=== PATIENT | male | born 1955 | race Two or more races ===

== ENCOUNTER 2016-11-11 21:45 | Emergency (ER) | payer MEDICAID ==
[~2016-11-11] VITALS: Ht 185.4 cm; Wt 90.7 kg
[2016-11-11 21:50] VITALS: BP 180/76
[2016-11-11] MEDS ORDERED: HYDROmorphone HCL 2 MG/ML VL IV ONE (22:15)
[2016-11-11] MEDS ORDERED: ONDANSETRON HCL 4 MG/2 ML VIAL IV ONE (22:15)
[2016-11-12 00:24] LABS: Basophils # (auto) 0 uL; Basophils % (auto) 0.5 % (0.0-2.0); Eosinophils # (auto) 0.2 uL; Eosinophils % (auto) 2.7 % (0.0-7.0); Hematocrit 45.7 % (41.0-53.0); Hemoglobin 14.7 g/dL (13.5-17.5); Lymphocytes # (auto) 1.1 uL; Lymphocytes % (auto) 13.3 % (10.0-50.0); Mean Corpuscular Hemoglobin 28.6 pg (28.0-32.0); Mean Corpuscular Hgb Conc. 32.3 g/dL (32.0-36.0); Mean Corpuscular Volume 88.6 fL (80.0-100.0); Mean Platelet Volume 7.9 fL (7.4-10.4); Monocytes # (auto) 0.7 uL; Monocytes % (auto) 8.4 % (0.0-12.0); Neutrophils # (auto) 5.9 uL; Neutrophils % (auto) 75.1 % (37.0-80.0); Platelet Count (auto) 355 10^3/uL (140-450); Red Cell Distribution Width 14.4 % (11.6-16.0); SUSPECT VIEW TRANSMISSION; White Blood Cell 7.9 10^3/uL (4.4-10.8)
[2016-11-12 00:31] LABS: Albumin 3.6 g/dL (3.4-5.0); BUN/Creatinine Ratio 12.4; Calcium 8.6 mg/dL (8.5-10.1); Potassium 3.9 mmol/L (3.5-5.1)
[2016-11-12 00:34] LABS: Bilirubin, Total 0.2 mg/dL (0.2-1.0); Total Protein 8.4 g/dL (6.4-8.2)
[2016-11-12 00:42] LABS: INR 0.93 (0.9-1.15); Partial Thromboplastin Time 27.2 sec (22.64-33.71)
== END 2016-11-12 01:21 | disposition left against medical advice (07) ==
LOC: ER 21:56
DX: S02.32XA Fracture of orbital floor, left side, initial encounter for closed fracture (principal); H46.12 Retrobulbar neuritis, left eye; Y08.89XA Assault by other specified means, initial encounter; Y93.89 Activity, other specified; Y92.89 Other specified places as the place of occurrence of the external cause; Y99.8 Other external cause status
CPT/HCPCS: 36415; 70450; 70486; 71010; 72125; 80053; 85025; 85610; 85730; 96374; 96375; 99285; J1170; J2405

== ENCOUNTER 2016-11-12 13:10 | Emergency (ER) | payer MEDICAID ==
[~2016-11-12] VITALS: Ht 172.7 cm; Wt 77.1 kg
[2016-11-12] MEDS ORDERED: SODIUM CHLORIDE 0.9% 500 ML IV ONE (14:39)
[2016-11-12] MEDS ORDERED: ceFAZolin 1GM/50ML D5W 50 ML IV ONE (14:45)
[2016-11-12] MEDS ORDERED: ONDANSETRON HCL 4 MG/2 ML VIAL IV ONE (14:45)
[2016-11-12] MEDS ORDERED: HYDROmorphone HCL 2 MG/ML VL IV ONE ×2 (14:45→18:15)
[2016-11-12] MEDS ORDERED: SODIUM CHLORIDE 0.9% 1,000 ML IV ONE (14:45)
[2016-11-12 15:03] LABS: Basophils # (auto) 0 uL; Basophils % (auto) 0.3 % (0.0-2.0); Eosinophils # (auto) 0.1 uL; Hemoglobin 14.3 g/dL (13.5-17.5); Lymphocytes # (auto) 0.9 uL; Lymphocytes % (auto) 9.8 % (10.0-50.0); Mean Corpuscular Hemoglobin 29.2 pg (28.0-32.0); Mean Corpuscular Hgb Conc. 33.1 g/dL (32.0-36.0); Mean Corpuscular Volume 88.1 fL (80.0-100.0); Mean Platelet Volume 7.2 fL (7.4-10.4); Monocytes # (auto) 0.8 uL; Monocytes % (auto) 8.7 % (0.0-12.0); Neutrophils % (auto) 80.2 % (37.0-80.0); Platelet Count (auto) 377 10^3/uL (140-450); Red Cell Distribution Width 15.8 % (11.6-16.0); White Blood Cell 8.7 10^3/uL (4.4-10.8)
[2016-11-12 15:23] LABS: Albumin 3.4 g/dL (3.4-5.0); Alkaline Phosphatase 98 U/L (45-117); Anion Gap 9 (5-15); Aspartate Aminotransferase 25 U/L (15-37); BUN/Creatinine Ratio 10.7; Bilirubin, Total 0.4 mg/dL (0.2-1.0); Blood Urea Nitrogen 9 mg/dL (7-18); Calcium 8.6 mg/dL (8.5-10.1); Carbon Dioxide 25 mmol/L (21-32); Chloride 104 mmol/L (98-107); GFR African American 121 mL/min; GFR Non-African American 100 mL/min; Glucose 128 mg/dL (74-106); Magnesium 2.6 mg/dL (1.6-2.6); Potassium 4.1 mmol/L (3.5-5.1); Sodium 138 mmol/L (136-145); Total Protein 8.1 g/dL (6.4-8.2)
[2016-11-12 15:48] LABS: INR 0.95 (0.9-1.15); Partial Thromboplastin Time 27.8 sec (22.64-33.71); Prothrombin Time 10.3 sec (9.37-12.3)
[2016-11-12 17:52] LABS: Urine RBC None Seen /hpf (0 - 3)
[2016-11-12 18:20] LABS: Urine Bilirubin Negative (Negative); Urine Blood Negative /uL (Negative); Urine Color Yellow (Yellow); Urine Glucose Normal (Normal); Urine Ketone Negative (Negative); Urine Mucus FEW (None Seen); Urine Nitrite Negative (Negative); Urine Urobilinogen Normal (Negative); Urine pH 5.5 (5.0-8.0)
[2016-11-12 18:28] VITALS: BP 151/82
== END 2016-11-12 18:51 | disposition short-term general hospital (02) ==
LOC: EDBD 13:10 → ER 13:10
DX: S02.32XA Fracture of orbital floor, left side, initial encounter for closed fracture (principal); S20.211A Contusion of right front wall of thorax, initial encounter; M19.90 Unspecified osteoarthritis, unspecified site; Z86.73 Personal history of transient ischemic attack (TIA), and cerebral infarction without residual deficits; Y04.0XXA Assault by unarmed brawl or fight, initial encounter; Y93.89 Activity, other specified; Y92.89 Other specified places as the place of occurrence of the external cause; Y99.8 Other external cause status
CPT/HCPCS: 36415; 70480; 71020; 80053; 81001; 83735; 84484; 85025; 85610; 85730; 93005; 94761; 96365; 96375; 96376; 99285; J0690; J1170; J2405; J7030; J7040